=== PATIENT | male | born 1950 | race Caucasian/White ===

== ENCOUNTER 2019-01-30 13:57 | Observation (INO) | payer MEDICARE ==
[~2019-01-30] VITALS: Ht 175.3 cm; Wt 97.3 kg
[2019-01-30 14:45] LABS: BASOPHILS % (AUTO) 0.6 % (0-1); EOSINOPHILS # (AUTO) 0.1 X10'3 (0-0.9); EOSINOPHILS % (AUTO) 3.5 % (0-6); HEMOGLOBIN 14.3 g/dl (14.0-17.9); LYMPHOCYTES % (AUTO) 24.9 % (21-51); MEAN CORPUSCULAR HEMOGLOBIN 31.7 PG (27.0-31.0); MEAN CORPUSCULAR HGB CONC 34.2 g/dL (33.0-36.5); MEAN CORPUSCULAR VOLUME 92.8 FL (78-98); MEAN PLATELET VOLUME 8.1 FL (7.4-10.4); MONOCYTES # (AUTO) 0.3 X10'3 (0-0.9); NEUTROPHILS # (AUTO) 2.6 X10'3 (1.8-7.7); PLATELET COUNT 130 X10'3 (140-440); RED BLOOD COUNT 4.52 X10'6 (4.70-6.10); RED CELL DISTRIBUTION WIDTH 12.9 % (11.5-14.5); WHITE BLOOD COUNT 4.1 X10'3 (4.5-11.0)
[2019-01-30] MEDS ORDERED: aspirin 325mg tablet PO ONE (14:50)
[2019-01-30 14:55] LABS: PARTIAL THROMBOPLASTIN TIME 26 SECONDS (22-32)
[2019-01-30 14:58] LABS: ALANINE AMINOTRANSFERASE 35 U/L (12-78); ALBUMIN 3.8 G/DL (3.4-5.0); ALBUMIN/GLOBULIN RATIO 1.2 (1.1-1.5); ALKALINE PHOSPHATASE 67 IU/L (46-116); ANION GAP 8 (8-16); ASPARTATE AMINO TRANSFERASE 24 U/L (10-37); BILIRUBIN,TOTAL 0.8 MG/DL (0.1-1.0); BLOOD UREA NITROGEN 13 MG/DL (7-18); BUN/CREATININE RATIO 13.3 (5.4-32.0); CALCIUM 8.7 MG/DL (8.5-10.1); CHLORIDE 106 MMOL/L (99-107); CREATININE 0.98 MG/DL (0.60-1.10); GLUCOSE 165 MG/DL (70-104); POTASSIUM 3.9 MMOL/L (3.5-5.1); SODIUM 140 MMOL/L (135-145); TOTAL PROTEIN 6.9 G/DL (6.4-8.2); eGFR 76 ML/MIN
--- NOTE | 2019-01-30 15:05 | NUR ---
notified malu colon that pt had taken aspri today in morning tat 5 am this morning.
[2019-01-30] MEDS ORDERED: mag hydrox/Alum hydrox/simeth 30ml oral suspension PO PRN (15:50)
[2019-01-30] MEDS ORDERED: acetaminophen 325mg tablet PO PRN (15:50)
[2019-01-30] MEDS ORDERED: ondansetron/PF 4mg/2ml inj IV PRN (15:50)
[2019-01-30] MEDS ORDERED: magnesium hydroxide 30ml (MOM) UD suspension PO PRN (15:50)
[2019-01-30] MEDS ORDERED: normal saline 1000ml 1,000 ML IV SCH (17:17)
[2019-01-30] MEDS ORDERED: LISI-600 PO (17:23)
[2019-01-30] MEDS ORDERED: ATOR40TA72 PO (17:23)
[2019-01-30] MEDS ORDERED: ASPI-611 PO (17:23)
--- NOTE | 2019-01-30 17:38 | NUR ---
new orders to change to ortho neuro than engineer geophysical laboratory.
[2019-01-30] MEDS ORDERED: nitroGLYCERIN-Tridil 50MG/D5W 250 ML IV ONE (17:41)
[2019-01-30] MEDS ORDERED: LIDOcaine 1% (10mg/ml)w/preservative injection 20ml MDV ONE (17:42)
[2019-01-30] MEDS ORDERED: verapamil 2.5 mg/ml inj IV ONE (17:42)
[2019-01-30] MEDS ORDERED: midazolam 2 mg/2 ml injection ONE (17:42)
[2019-01-30] MEDS ORDERED: fentaNYL/PF 50MCG/1 ML 2ML syringe ONE (17:42)
[2019-01-30] MEDS ORDERED: iohexol 350MG/ML 100ml bottle IV ONE (17:42)
[2019-01-30] MEDS ORDERED: heparin 1,000unit/ml 10ml vial 10 ML ONE (17:42)
[2019-01-30 17:58] LABS: HEMOGLOBIN A1C 5.5 % (4.5-6.2)
--- NOTE | 2019-01-30 18:16 | NUR ---
Patient saline locked for transport to CT and MRI.
--- NOTE | 2019-01-30 20:45 | NUR ---
Attempted to call report, was told the nurse was busy and would call back
[2019-01-30] MEDS ORDERED: non-formulary drug (Aspirin (Aspir 81) 1 TAB) PO SCH (21:00)
[2019-01-30] MEDS ORDERED: atorvastatin 20mg tablet PO SCH (21:00)
--- NOTE | 2019-01-30 21:09 | NUR ---
Attempted to call report again, no answer, was transferred to ortho side and then transferred back to Neuro, no answer
[2019-01-30 21:30] VITALS: BP 135/83
[2019-01-30 23:00] VITALS: BP 116/70
[2019-01-31 02:00] VITALS: BP 129/72
--- NOTE | 2019-01-31 06:16 | NUR ---
Problems reprioritized. Patient report given, questions answered & plan of care reviewed with SAUL CHO.
--- NOTE | 2019-01-31 06:30 | NUR ---
Received report from Angélica HUGHES
[2019-01-31 06:43] VITALS: BP 131/78
[2019-01-31] MEDS ORDERED: clopidogrel 75mg tablet PO SCH (08:00)
[2019-01-31] MEDS ORDERED: aspirin 81mg tablet.DR PO SCH (08:00)
[2019-01-31] MEDS ORDERED: atorvastatin 20mg tablet PO SCH (08:00)
[2019-01-31 14:12] VITALS: BP 135/79
[2019-01-31] MEDS ORDERED: midazolam 2 mg/2 ml injection ONE (15:35)
[2019-01-31] MEDS ORDERED: iohexol 350MG/ML 100ml bottle IV ONE (15:35)
[2019-01-31] MEDS ORDERED: nitroGLYCERIN-Tridil 50MG/D5W 250 ML IV ONE (15:35)
[2019-01-31] MEDS ORDERED: fentaNYL/PF 50MCG/1 ML 2ML syringe ONE (15:35)
[2019-01-31] MEDS ORDERED: LIDOcaine 1% (10mg/ml)w/preservative injection 20ml MDV ONE (15:35)
[2019-01-31] MEDS ORDERED: heparin 1,000unit/ml 10ml vial 10 ML ONE (15:35)
[2019-01-31] MEDS ORDERED: verapamil 2.5 mg/ml inj IV ONE (15:35)
[2019-01-31] MEDS ORDERED: ondansetron/PF 4mg/2ml inj IV PRN (17:50)
[2019-01-31] MEDS ORDERED: OXAZEpam 15mg capsule PO PRN (17:50)
[2019-01-31] MEDS ORDERED: normal saline 1000ml 1,000 ML IV SCH (17:50)
[2019-01-31] MEDS ORDERED: proCHLORperazine 10 MG/2 ml inj IV PRN (17:50)
[2019-01-31 18:00] VITALS: BP 126/77
--- NOTE | 2019-01-31 18:00 | NUR ---
Patient in room ORTHO 4010. I have received report from SAUL [place] and had the opportunity to ask questions and assume patient care.
--- NOTE | 2019-01-31 19:51 | NUR ---
Pt. discharge home with .Instruction given to pt.
== END 2019-01-31 19:43 | disposition home or self-care (01) ==
LOC: ER 13:58 → ORTHO 4S 21:37 → CMPBEDREQ 21:59
PROVIDERS: ADMIT Internal Medicine; ATTEND Internal Medicine
DX: R07.9 Chest pain, unspecified (principal); R20.0 Anesthesia of skin; I25.10 Atherosclerotic heart disease of native coronary artery without angina pectoris; I10 Essential (primary) hypertension; E78.5 Hyperlipidemia, unspecified; Z88.0 Allergy status to penicillin; Z88.1 Allergy status to other antibiotic agents; Z79.82 Long term (current) use of aspirin
CPT/HCPCS: 36415; 70450; 70544; 70551; 71045; 80053; 83036; 84484; 85025; 85610; 85651; 85730; 87081; 92508; 92616; 93458; 99284; C1769; C1894; G0378; J1644; J2001; J2250; J3010; J7030; Q9967; 93005; 99152; 99153; A4620; A5120; A6258; J3490

== ENCOUNTER 2019-07-03 16:10 | Emergency (ER) | payer MEDICARE ==
[~2019-07-03] VITALS: Ht 175.3 cm; Wt 95.0 kg
[~2019-07-03 16:10] MED LIST: ASPI-611 PO; ATOR40TA72 PO; LISI-600 PO
[2019-07-03 16:15] VITALS: BP 156/84
[2019-07-03] MEDS ORDERED: METH4TAB81 PO (17:16)
== END 2019-07-03 17:24 | disposition home or self-care (01) ==
LOC: ER 16:10
DX: M54.5 Low back pain (principal); R10.31 Right lower quadrant pain; Z88.0 Allergy status to penicillin; Z88.5 Allergy status to narcotic agent; Z79.82 Long term (current) use of aspirin; Z79.899 Other long term (current) drug therapy
CPT/HCPCS: 99283